=== PATIENT | female | born 1960 | race Caucasian/White ===

== ENCOUNTER 2018-09-30 07:08 | Emergency (ER) | payer OTHER ==
[2018-09-30 07:23] VITALS: BP 155/92
--- NOTE | 2018-09-30 08:04 | UC ---
Eye Complaint HPI - HPI Summary HPI Summary: PATIENT HAS HAD URI SYMPTOMS INCLUDING COUGH AND CONGESTION FOR ABOUT A WEEK. WOKE UP THIS MORNING WITH RIGHT EYE CRUSTED SHUT. IT IS MILDLY RED AND IRRITATED. SHE HAS GRANDCHILDREN WITH PINK EYE. NO FEVER, NO NAUSEA/VOMITING. NO VISUAL DISTURBANCES. - History of Current Complaint Chief Complaint: UCEye Stated Complaint: EYE ISSUE Time Seen by Provider: 09/30/18 07:10 Hx Obtained From: Patient Onset/Duration: Sudden Onset, Lasting Hours, Still Present Timing: Constant Severity Initially: Mild Severity Currently: Mild Pain Intensity: 0 Pain Scale Used: 0-10 Numeric Location of Injury: Conjunctiva Aggravating Factor(s): Nothing Alleviating Factor(s): Nothing Associated Signs And Symptoms: Positive: Drainage (Clear). Negative: Photophobia, Vision Impairment Bilateral - Allergies/Home Medications Allergies/Adverse Reactions: Allergies Allergy/AdvReac Type Severity Reaction Status Date / Time No Known Allergies Allergy Verified 09/30/18 07:23 Home Medications: Home Medications Loratadine [Claritin 10 MG CAP] 10 mg PO DAILY PRN 09/30/18 [History Confirmed 09/30/18] PMH/Surg Hx/FS Hx/Imm Hx Cardiovascular History: Cardiac Disease - MURMUR - Surgical History Surgical History: Yes Surgery Procedure, Year, and Place: tonsillectomy - Family History Known Family History: Positive: Non-Contributory - Social History Alcohol Use: Occasionally Substance Use Type: None Smoking Status (MU): Never Smoked Tobacco Review of Systems All Other Systems Reviewed And Are Negative: Yes Constitutional: Positive: Negative Eyes: Positive: Drainage, Eye Redness ENT: Positive: Sore Throat, Nasal Discharge Respiratory: Positive: Cough Cardiovascular: Positive: Negative Gastrointestinal: Positive: Negative Physical Exam Triage Information Reviewed: Yes Appearance: Well-Appearing, No Pain Distress, Well-Nourished Vital Signs: Initial Vital Signs Temp 99.7 F 09/30/18 07:19 Pulse 110 09/30/18 07:19 Resp 16 09/30/18 07:19 BP 155/92 09/30/18 07:19 Pulse Ox 100 09/30/18 07:19 Vital Signs Reviewed: Yes Eyes: Positive: Conjunctiva Inflamed - MILDLY INJECTED RIGHT EYE, Discharge - CLEAR DRAINAGE RIGHT EYE ENT: Positive: Hearing grossly normal, Pharynx normal, TMs normal - TMS OBSCURED BY CERUMEN. AFTER IRRIGATION LEFT TM CLEAR. RIGHT TM SLIGHTLY ERYTHEMATOUS Neck: Positive: Supple, Nontender, No Lymphadenopathy Respiratory Exam: Normal Cardiovascular: Positive: RRR, Pulses Normal Abdomen Description: Positive: Soft Musculoskeletal: Positive: No Edema Neurological: Positive: Alert Psychological: Positive: Age Appropriate Behavior Skin: Negative: Rashes Eye Complaint Course/Dx - Course Course Of Treatment: CIPRO EYE DROPS FOR RIGHT EYE CONJUNCTIVITIS. COUNSELED ON GOOD HAND HYGIENE AND CONTAGIOUS NATURE OF THIS CONDITION. UPPER RESPIRATORY SYMPTOMS ARE LIKELY VIRAL IN ETIOLOGY AND SHOULD RESOLVE ON THEIR OWN WITH TIME. PATIENT'S RIGHT TM WAS MILDLY ERYTHEMATOUS AFTER CERUMEN IRRIGATION BY RN. THIS IS LIKELY DUE TO MECHANICAL PRESSURE ON THE EARDRUM OPPOSED TO ACUTE INFECTION, HOWEVER I HAVE ADVISED PATIENT TO CALL ME HERE IN THE NEXT FEW DAYS IF SHE DEVELOPS EAR PAIN. - Differential Dx/Diagnosis Provider Diagnosis: Conjunctivitis, right eye, Upper respiratory infection Discharge - Sign-Out/Discharge Documenting (check all that apply): Patient Departure All imaging exams completed and their final reports reviewed: No Studies - Discharge Plan Condition: Stable Disposition: HOME Prescriptions: Ciprofloxacin 0.3% OPTH.ELENA* [Cipro 0.3% Opth*] 1 drop RIGHT EYE Q4H #1 btl Patient Education Materials: Conjunctivitis (ED) Referrals: [facility] [Outside] - If Needed Additional Instructions: USE THE ANTIBIOTIC EYEDROPS DIRECTED FOR YOUR PINK EYE. PRACTICE GOOD HAND HYGIENE THIS CONDITION IS HIGHLY CONTAGIOUS. FOLLOW-UP WITH AN EYE DOCTOR IF YOUR SYMPTOMS ARE NOT IMPROVING OVER THE NEXT FEW DAYS. YOUR UPPER RESPIRATORY SYMPTOMS ARE LIKELY VIRALLY MEDIATED AND SHOULD RESOLVE ON THEIR OWN WITH TIME. NO INDICATION FOR ANTIBIOTICS AT PRESENT. REST, HYDRATE , OTC MEDS NEEDED. SEEK FOLLOW-UP IF YOU ARE NOT IMPROVING OVER THE NEXT 1-2 WEEKS. CALL THE NUMBER BELOW FOR ASSISTANCE IN ESTABLISHING WITH A PCP An additional resource available to assist in finding the appropriate physician for your health care needs is [facility] ([facility]). You may contact them by calling [phone]. - Billing Disposition and Condition Condition: STABLE Disposition: Home
== END 2018-09-30 08:00 | disposition home or self-care (01) ==
LOC: UCEAST 07:08
DX: H10.9 Unspecified conjunctivitis (principal); J06.9 Acute upper respiratory infection, unspecified; R01.1 Cardiac murmur, unspecified
CPT/HCPCS: 99203; G0463